=== PATIENT | female | born 1975 | race Caucasian/White ===

== ENCOUNTER 2016-05-17 17:34 | Inpatient (IN) | payer MEDICAID ==
[~2016-05-17] VITALS: Ht 154.9 cm; Wt 86.9 kg
[~2016-05-17 17:34] MED LIST: PREN1TAB62 PO
--- NOTE | 2016-05-17 17:38 | NSTRPT ---
NST Information Datetime Report Generated by CPN: 05/17/2016 17:38 Datetime: 05/17/2016 14:33 NST Information EGA: 38.0 Test Number: 7 Time on Monitor: 05/17/2016 14:50 Time off Monitor: 05/17/2016 15:19 NST Duration (Min): 29 Reason for NST: Other Reason for NST Other: AMA, large fibroid Test and Monitor Explained: Monitor Explained; Test Explained; Verbalized Understanding Pulse: 68 Resp: 18 SBP: 116 DBP: 73 Test Evaluation Patient States Movement: Present Contraction Frequency: x3, pt states 5/10 FHR Baseline : 130 Variability: Moderate 6-25bpm Accelerations: 15X15 Decelerations: None FHR Category: Category I NST Results: Reactive Provider Notified: Brandan Comments: To u/s LARRY-16.9 cm, breech, 1520-Report called to Dr Gipson, order received to admit pt to L_D for Prim c/s. POC explained to pt, states understanding and last ate at 1200. Report called to Greer RN, L_D. 1525-Pt to L_D, dionne es further questions at this time. Electronically Signed By E-Signature: with User ID: [id number] Datetime: 05/13/2016 14:28 NST Information EGA: 37.3 NST Duration (Min): 40 Datetime: 05/10/2016 14:22 NST Information EGA: 37.0 NST Duration (Min): 21 Datetime: 05/06/2016 14:15 NST Information EGA: 36.3 NST Duration (Min): 29 Datetime: 05/03/2016 14:30 NST Information EGA: 36.0 NST Duration (Min): 20 Datetime: 04/29/2016 14:32 NST Information EGA: 35.3 NST Duration (Min): 48 Datetime: 04/26/2016 10:55 NST Information EGA: 35.0 NST Duration (Min): 20
[2016-05-17 17:47] VITALS: Ht 154.9 cm; Wt 86.9 kg
[2016-05-17 17:48] VITALS: BP 128/77; PULSE 66; RESP 18
[2016-05-17] MEDS ORDERED: OXYTOCIN 30 UNITS/LR 500 ML IV PRN (18:00)
[2016-05-17] MEDS ORDERED: MISOPROSTOL 200 MCG TAB PR PRN (18:00)
[2016-05-17] MEDS ORDERED: OXYTOCIN 30 UNITS/LR 500 ML IV SCH (18:00)
[2016-05-17] MEDS ORDERED: CARBOPROST 250 MCG INJ IM PRN (18:00)
[2016-05-17] MEDS ORDERED: METHYLERGONOVINE 0.2 MG INJ IM PRN (18:00)
[2016-05-17] MEDS ORDERED: CEFAZOLIN 2 GM/50 ML (PMX) 50 ML IV SCH (18:00)
[2016-05-17 18:21] LABS: BASOPHILS % 0.4 % (0.0-2.0); EOSINOPHILS % 0.5 % (0.0-7.0); HEMATOCRIT 32.6 % (37.0-47.0); LYMPHOCYTES # 1.3 10^3/ul (0.8-2.9); LYMPHOCYTES % 22.3 % (15.0-51.0); MEAN CORPUSCULAR HGB CONC 33.6 g/dl (32.0-37.0); MEAN CORPUSCULAR VOLUME 86.3 fl (82.0-101.0); MEAN PLATELET VOLUME 8.7 fl (7.4-10.4); MONOCYTE # 0.3 10^3/ul (0.3-0.9); NEUTROPHIL # 4.3 10^3/ul (1.6-7.5); NEUTROPHILS % 71.8 % (39.0-77.0); PLATELET COUNT 243 10^3/UL (140-440); RED BLOOD COUNT 3.78 10^6/ul (4.20-5.40); RED CELL DISTRIBUTION WIDTH 16.4 % (11.5-14.5)
[2016-05-17] MEDS: LACTATED RINGER'S 1,000 ML IV SCH ×2 (18:21→19:33)
[2016-05-17 18:24] LABS: INR 0.86; PROTIME 11.7 Sec (12.2-14.2); PT RATIO 0.9
[2016-05-17 18:25] LABS: PARTIAL THROMBOPLASTIN TIME 27.5 Sec (25.0-35.0)
[2016-05-17 18:27] LABS: CONDITION 1; LH ANALYZER COMMENTS 1
[2016-05-17] MEDS ORDERED: TERBUTALINE 1 MG/ML INJ SC ONE (22:00)
[2016-05-17] MEDS ORDERED: LACTATED RINGER'S 1,000 ML IV ONE ×2 (23:22→23:25)
[2016-05-17] MEDS ORDERED: ONDANSETRON 4 MG INJ IV PRN ×2 (23:30)
[2016-05-17] MEDS ORDERED: ZOLPIDEM 5 MG TAB PO PRN (23:30)
[2016-05-17] MEDS ORDERED: hydrALAzine 20 MG INJ IV PRN (23:30)
[2016-05-17] MEDS ORDERED: KETOROLAC 30 MG INJ IV ONE (23:30)
[2016-05-17] MEDS ORDERED: CITRIC ACID/NA CITRATE 30 ML CUP PO ONE (23:30)
[2016-05-17] MEDS ORDERED: DIPHENHYDRAMINE 50 MG INJ IV PRN ×2 (23:30)
[2016-05-17] MEDS ORDERED: morphine 2 MG INJ IV PRN (23:30)
[2016-05-17] MEDS ORDERED: morphine (1 MG/ML) 10ML SYRINGE IV PRN ×3 (23:30)
[2016-05-17] MEDS ORDERED: ONDANSETRON 4 MG INJ IV ONE (23:30)
[2016-05-17] MEDS ORDERED: NALOXONE (0.4 MG/ML) INJ IV PRN (23:30)
[2016-05-17] MEDS ORDERED: EPHEDrine SULFATE 50 MG/5 ML SYG IV PRN (23:30)
[2016-05-17] MEDS ORDERED: MEPERIDINE 25 MG INJ IV PRN (23:30)
[2016-05-17] MEDS ORDERED: morphine SULFATE/PF (10 MG/10 ML) INJ ONE ×2 (23:41→23:43)
[2016-05-17] MEDS ORDERED: MIDAZOLAM 1 MG/ML 2 ML INJ ONE (23:41)
[2016-05-17] MEDS ORDERED: OXYTOCIN 10 UNIT INJ ONE (23:42)
[2016-05-17] MEDS ORDERED: PHENYLephrine (100 MCG/ML) 5ML SYG ONE (23:42)
[2016-05-18] VITALS (8 sets, daily range): BP systolic 115–126; BP diastolic 61–75; PULSE 64–102; RESP 16–20
--- NOTE | 2016-05-18 00:56 | HP ---
Date/Time of Note Date/Time of Note DATE: 05/18/16 TIME: 00:51 OB - History Hx of Present Free Text/Dictation admitted at 38weeks with breech presentation and persistent uterine contractions Last Menstrual Period: September 06, 2015 Estimated Due Date: May 31, 2016 : 8 Para: 5 Spontaneous : 2 Care: Good Care Ultrasounds: Abnormal US findings (1 umbilical artery ) Obstetrical Complications: Other (low PANTERA-A ) Past Family/Social History * Past Medical, Surgical, Family and Obstetric Histories reviewed from chart. Blood Type: O+ Rubella: immune RPR/VDRL: Negative GBS Status: Negative HBsAG: Negative OB Admission Exam Vital Signs Vital Signs Vital Signs Date Time Temp Pulse Resp B/P Pulse Ox O2 Delivery O2 Flow Rate FiO2 05/17/16 17:48 97.9 66 18 128/77 Room Air Physical Exam HEENT: WNL Heart: Rhythm Normal Lungs: Clear, Equal Abdomen: WNL Extremities: Normal Reflexes: Normal Cervical Dilatation: Fingertip Effacement: 0% Station: -3 Membranes: Intact Heart Rate: 120's Accelerations: Accelerations Present Decelerations: No Decelerations Varibility: Marked Contractions on Admission: 6-10 Minutes Apart Date/Time Contractions Began: 05/16/2016 Frequency of Contractions: q4-8 min Duration: > 60 seconds Intensity: Moderate Last 72 hours Lab Results CBC & BMP 05/17/16 17:55 OB Assessment/Plan Other Assessment: breech presentation at term in labor desires sterilization Other plan: C/S + BTL RAGHAV JOHNSON MD May 18, 2016 00:56
--- NOTE | 2016-05-18 01:03 | OPR ---
Operative Report Planned Procedure Procedure date May 18, 2016 Procedure(s) primary C/S + BTL Performed by: RAGHAV JOHNSON MD Assisting provider: DIANA VELASQUEZ Anesthesiologist: FELECIA WOLFF M.D. Pre-procedure diagnosis term gestation breech presentation labor pains desires sterilization leiomyomata of the uterus Anesthesia Type: spinal Procedure Description Under satisfactory anaesthesia a Pfannenstiel incision was made two fingerbreadth above and parallel to the symphysis of pubis. Incision was extended laterally to the border of the Recti muscles on either sides. Incision was carried down with sharp and blunt dissection until fascia was reached. Anterior Recti muscle fascia was incised in mid portion and incision extended laterally to the border of skin incision. Fascia was mobilized from muscle superiorly and Recti muscles were from midline using sharp and blunt dissection. Peritoneum was visualized; Avoiding bowel and bladder it was incised . Incision was extended superiorly and inferiorly. Bladder blade was placed. Posterior peritoneum covering the lower segment of the uterus and lower segment of the uterus were incised.Low transverse uterine incision was made on lower segment of the uterus. Incision extended laterally to the border of Round Lig. on either sides and baby was delivered via total breech extraction without difficulty . Amniotic fluid appeared clear. Cord blood was obtained and cord had 3 vessels. Placenta was delivered spontaneously and appeared intact and complete. Intrauterine cavity was rubbed with a laparotomy sponge. Uterine incision was closed in 2 layers using running stitches of No1 Monocryl. Hemostasis appeared secure. Ovaries and Fallopian tubes were within normal limits. Bilateral Tubal Ligation was performed by following procedure: R fallopian tube was raised in mid portion; a Domonique clamp was placed below the fimbriae extending to proximal portion of the fallopian tube. Another clamp was placed parallel to the first and after incising the fallopian tube the stump was sutured using 0 Vicryl stitch. Hemostasis was secure . Same procedure was done on fallopian tube on the opposite side. Hemostasis appeared to be secure on ligated sites of either fallopian tubes. Announcing needle, lap sponge and instrument count to be correct abdomen was closed in layers as follows: Peritoneum and Recti muscles with running stitches of 20 Vicryl. Fascia with running stitch of No 1 PDS. Subcutaneous tissue with running stitches of 20 Chromic and skin was closed using heather. Patient tolerated the procedure well and was transferred to [facility] in good condition. Post-Procedure Post-procedure diagnosis S/P C/S + BTL Findings: Live Baby 2 X large leiomyoma of the uterus located in the fundal area: L side: 18 x18 x18 cm R side: 14 X 14 x 14 cm Specimen removed: Yes Specimen description segments of R and L fallopian tubes Complications: None Pt Condition post procedure: stable Disposition: PACU Physician Certification I, the undersigned physician, hereby certify that I have discussed the procedure described in this consent form with this patient (or the patient's legal direct sales representative), including: * The risk and benefits of the procedure; * Any adverse reactions that may reasonably be expected to occur; * Any alternative efficacious methods of treatment which may be medically viable ; * The potential problems that may occur during recuperation; * Potential for blood transfusion and associated risks/benefits; and * Any research or economic interest I may have regarding this treatment. I further certify that the patient/legally responsible person was encouraged to ask question and that all questions were answered. RAGHAV JOHNSON MD May 18, 2016 01:03
--- NOTE | 2016-05-18 03:16 | DELSUM ---
Delivery Summary A-C Datetime Report Generated by CPN: 05/18/2016 03:16 DELIVERY PERSONNEL College Admissions Counselor: Canuto, Ailyn MATERNAL INFORMATION Delivery Anesthesia: Spinal Medications in Delivery: SEE ANESTHESIA FLOWSHEET Estimated Blood Loss (ml): 700 Placenta Cultured: No Maternal Complications: Other Other Maternal Complications: GALLSTONES, FIBROIDS, LOW PANTERA, BIOPSY R BREAST, VARICOSE VEINS LABOR SUMMARY EDC: 05/31/2016 00:00 No. Babies in Womb: 1 Attempted: No Labor Anesthesia: None LABOR INFORMATION Reason for Induction: Not Applicable Onset of Labor: 05/17/2016 05:00 Oxytocin: N/A Group B Beta Strep: Done, Result Unknown Antibiotics # of Doses: 1 Antibiotics Time of Last Dose: 2345 Steroids Given: None Reason Steroids Not Administered: Not Applicable MEMBRANES Membranes Rupture Method: Artificial Rupture of Membranes: 05/18/2016 00:08 Length of Rupture (hr): 0.03 Amniotic Fluid Color: Clear Amniotic Fluid Amount: Moderate Amniotic Fluid Odor: None STAGES OF LABOR Stage 3 hr: 0 Stage 3 min: 1 Total Time in Labor hr: 19 Total Time in Labor min: 11 CSECTION DELIVERY Primary Indication: Breech Presentation Secondary Indication: N/A CSection Urgency: Elective CSection Incidence: Primary Labor: No Labor Elective: N/A CSection Incision: Lower Uterine Transverse Sterilization Procedure: [place] BABY A INFORMATION Infant Delivery Date/Time: 05/18/2016 00:10 Method of Delivery: Born in Route : No : N/A Forceps: N/A Vacuum Extraction: N/A Shoulder Dystocia : N/A SHOULDER DYSTOCIA BABY A Infant Delivery Date/Time: 05/18/2016 00:10 PRESENTATION/POSITION BABY A Presentation: Breech Cephalic Presentation: N/A Breech Presentation: Single Footling PLACENTA INFORMATION BABY A Placenta Delivery Time : 05/18/2016 00:11 Placenta Method of Delivery: Manual Removal Placenta Status: Delivered SCORES BABY A Heart Rate 1 min: >100 bpm Resp Effort 1 min: Good Cry Reflex Irritability 1 min: Cough/Sneeze/Pulls Away Muscle Tone 1 min: Active Motion Color 1 min: Blue/Pale Resuscitation Effort 1 min: Tactile Stimulation SCORE 1 MIN: 8 Heart Rate 5 min: >100 bpm Resp Effort 5 min: Good Cry Reflex Irritability 5 min: Cough/Sneeze/Pulls Away Muscle Tone 5 min: Active Motion Color 5 min: Body [place], Extremit Blue Resuscitation Effort 5 min: Tactile Stimulation SCORE 5 MIN: 9 INFANT INFORMATION BABY A Gestational Age at Delivery: 38.1 Gestational Status: Early Term- 37- 38.6 Weeks Outcome : Liveborn Infant Condition : Stable Infant Sex: Male IDENTIFICATION/MEDS BABY A ID Band Number: [id number] ID Band Location: Right Leg; Left Arm Sensor Applied: Yes Sensor Number: [id number] Sensor Location : Cord Clamp Vitamin K Given : Not Given Erythromycin Given: Not Given WEIGHT/LENGTH BABY A Infant Birthweight (gm): 3035 Weight (lb): 6 Infant Weight (oz): 11 Length (in): 19.50 Length (cm): 49.53 CORD INFORMATION BABY A No. Cord Vessels: 3 Nuchal Cord : N/A Nuchal Cord- Other: BODY Cord Blood Taken: Yes Infant Suction: Mouth; Nose; Pharynx ASSESSMENT BABY A Infant Complications: None Physical Findings at Delivery: Within Normal Limits Respirations: Appears Normal Dramatic Teacher/ALS Called : No Care By: CAMILING Transferred To: Remains with Mother
[2016-05-18] MEDS: LACTATED RINGER'S 1,000 ML IV SCH ×3 (04:17→20:17)
[2016-05-18] MEDS ORDERED: NA PHOSPHATE/BIPHOS 133 ML ENEMA PR PRN ×2 (04:30→05:00)
[2016-05-18] MEDS ORDERED: MISOPROSTOL 200 MCG TAB PR PRN (04:30)
[2016-05-18] MEDS ORDERED: CARBOPROST 250 MCG INJ IM PRN (04:30)
[2016-05-18] MEDS ORDERED: METHYLERGONOVINE 0.2 MG INJ IM PRN (04:30)
[2016-05-18] MEDS ORDERED: LANOLIN 7 GM TUBE TOP PRN (04:30)
[2016-05-18] MEDS ORDERED: OXYTOCIN 30 UNITS/LR 500 ML IV PRN (04:30)
[2016-05-18] MEDS: CLINDAMYCIN 300 MG CAP PO SCH ×3 (05:42→17:41)
[2016-05-18] MEDS: CEFAZOLIN 2 GM/50 ML (PMX) 50 ML IV SCH ×4 (05:42→20:39)
[2016-05-18] MEDS: IBUPROFEN 800 MG TAB PO SCH ×3 (05:52→21:44)
[2016-05-18] MEDS ORDERED: DIPHENHYDRAMINE 50 MG INJ IV PRN (06:00)
[2016-05-18] MEDS: SENNA/DOCUSATE NA (8.6MG/50MG) TAB PO SCH ×2 (08:39→20:30)
[2016-05-18 11:12] LABS: BASOPHILS % 0.4 % (0.0-2.0); EOSINOPHILS % 0.4 % (0.0-7.0); HEMATOCRIT 26.6 % (37.0-47.0); HEMOGLOBIN 8.9 g/dl (12.0-16.0); LYMPHOCYTES % 15.6 % (15.0-51.0); MEAN CORPUSCULAR HEMOGLOBIN 28.8 pg (29.0-33.0); MEAN CORPUSCULAR HGB CONC 33.5 g/dl (32.0-37.0); MEAN CORPUSCULAR VOLUME 85.9 fl (82.0-101.0); MEAN PLATELET VOLUME 8.3 fl (7.4-10.4); MONOCYTE # 0.3 10^3/ul (0.3-0.9); MONOCYTES % 4.3 % (0.0-11.0); NEUTROPHIL # 5.1 10^3/ul (1.6-7.5); NEUTROPHILS % 79.3 % (39.0-77.0); PLATELET COUNT 170 10^3/UL (140-440); RED CELL DISTRIBUTION WIDTH 16.2 % (11.5-14.5); UNCORRECTED WBC 6.4 10^3/ul (4.8-10.8); WHITE BLOOD COUNT 6.4 10^3/ul (4.8-10.8)
[2016-05-18 11:16] LABS: CONDITION 1; LH ANALYZER COMMENTS 1
[2016-05-18] MEDS ORDERED: BISACODYL 10 MG SUPP PR ONE (13:30)
[2016-05-18] MEDS: morphine 2 MG INJ IV PRN ×2 (14:14→20:31)
[2016-05-19] MEDS: CLINDAMYCIN 300 MG CAP PO SCH ×5 (00:20→23:39)
[2016-05-19] MEDS: OXYCODONE/ACETAMINOPHEN (5/325) TAB PO PRN (00:20)
[2016-05-19 04:00] VITALS: BP 110/66; PULSE 84; RESP 20
[2016-05-19] MEDS: LACTATED RINGER'S 1,000 ML IV SCH ×2 (04:17→20:17)
[2016-05-19] MEDS: IBUPROFEN 800 MG TAB PO SCH ×3 (06:40→22:24)
[2016-05-19 07:30] VITALS: BP 115/67; PULSE 83; RESP 20
[2016-05-19] MEDS: ACETAMINOPHEN/CODEINE #3 TAB PO PRN ×2 (08:06→16:19)
[2016-05-19] MEDS: SENNA/DOCUSATE NA (8.6MG/50MG) TAB PO SCH ×2 (08:07→21:06)
[2016-05-19 08:31] LABS: BASOPHILS % 0.3 % (0.0-2.0); EOSINOPHILS % 0.5 % (0.0-7.0); HEMATOCRIT 26.7 % (37.0-47.0); HEMOGLOBIN 9.2 g/dl (12.0-16.0); LYMPHOCYTES # 1.2 10^3/ul (0.8-2.9); LYMPHOCYTES % 13.8 % (15.0-51.0); MEAN CORPUSCULAR HEMOGLOBIN 29.7 pg (29.0-33.0); MEAN CORPUSCULAR HGB CONC 34.3 g/dl (32.0-37.0); MEAN CORPUSCULAR VOLUME 86.6 fl (82.0-101.0); MEAN PLATELET VOLUME 8.8 fl (7.4-10.4); MONOCYTE # 0.4 10^3/ul (0.3-0.9); MONOCYTES % 4.4 % (0.0-11.0); NEUTROPHIL # 6.9 10^3/ul (1.6-7.5); PLATELET COUNT 187 10^3/UL (140-440); RED BLOOD COUNT 3.09 10^6/ul (4.20-5.40); RED CELL DISTRIBUTION WIDTH 16.5 % (11.5-14.5); UNCORRECTED WBC 8.6 10^3/ul (4.8-10.8); WHITE BLOOD COUNT 8.6 10^3/ul (4.8-10.8)
[2016-05-19 08:38] LABS: CONDITION 1; LH ANALYZER COMMENTS 1
[2016-05-19 11:51] VITALS: BP 94/53; PULSE 75; RESP 20
--- NOTE | 2016-05-19 14:23 | PN ---
Date/Time of Note Date/Time of Note DATE: 05/19/16 TIME: 14:17 Assessment/Plan VTE Prophylaxis VTE Prophylaxis Intervention: ambulation Lines/Catheters IV Catheter Type (from Nrs): Saline Lock Assessment/Plan Assessment/Plan POD # 1 S/P C/S + BTL will advance diet and ambulate Subjective 24 Hr Interval Summary passing flatus No BM Exam/Review of Systems Vital Signs Vitals Vital Signs Date Time Temp Pulse Resp B/P Pulse Ox O2 Delivery O2 Flow Rate FiO2 05/19/16 11:51 98.3 75 20 94/53 Room Air Intake and Output 05/18/16 05/18/16 05/19/16 15:00 23:00 07:00 Intake Total 1640 ml 1240 ml Output Total 200 ml 1600 ml 4200 ml Balance 1440 ml -360 ml -4200 ml Exam Free Text/Dictation VSS P/E normal abdomen: soft BS + incision : covered Results Result Diagram: 05/19/16 0655 RAGHAV JOHNSON MD May 19, 2016 14:23
[2016-05-19 17:55] VITALS: BP 116/67; PULSE 84; RESP 18
[2016-05-19 19:20] VITALS: BP 118/73; PULSE 74; RESP 18
[2016-05-20 04:00] VITALS: BP 101/53; PULSE 77; RESP 18
[2016-05-20] MEDS: LACTATED RINGER'S 1,000 ML IV SCH ×2 (04:17→20:17)
[2016-05-20] MEDS: IBUPROFEN 800 MG TAB PO SCH ×3 (06:22→21:14)
[2016-05-20] MEDS: CLINDAMYCIN 300 MG CAP PO SCH ×3 (06:23→17:05)
[2016-05-20 07:57] VITALS: BP 99/57; PULSE 76; RESP 20
[2016-05-20] MEDS: SENNA/DOCUSATE NA (8.6MG/50MG) TAB PO SCH ×2 (09:28→21:14)
[2016-05-20] MEDS: ACETAMINOPHEN/CODEINE #3 TAB PO PRN ×2 (09:28→17:05)
[2016-05-20 13:09] VITALS: BP 108/55; PULSE 82; RESP 19
[2016-05-20 15:55] VITALS: BP 104/66; PULSE 70; RESP 20
--- NOTE | 2016-05-20 18:25 | DS ---
Date/Time of Note Date/Time of Note home next day DATE: 05/20/16 TIME: 18:24 Obstetrical Discharge Record Final Diagnosis Final Diagnosis: Term delivered Other Final Diagnosis S/P C/S + BTL Vaginal Delivery Obstetrical Delivery: Bilateral Tubal Ligation Section Section: Repeat Condition on Discharge Physical Assessment Last Vitals: see nurses notes Voiding: Yes Bowel Movement: Yes Breast: Soft, non-tender, Filling Fundus: Firm Abdomen and Incision: soft BS + incision: healing well Calf Tenderness: No Patient Condition: Good RAGHAV JOHNSON MD May 20, 2016 18:25
--- NOTE | 2016-05-20 18:28 | DS ---
Date/Time of Note Date/Time of Note home next day DATE: 05/20/16 TIME: 18:25 Discharge Summary Admission/Discharge Info Admit Date/Time May 17, 2016 at 17:34 Discharge Date/Time 05/20/2016 Final Diagnosis S/P C/S + BTL leiomyomata of the uterus Patient Condition: Good Procedures C/S and BTL Hx of Present Illness 41 y/o female had C/S + BTL Hospital Course uncomplicated Home Meds Reported Medications Vit-Iron Fumarate-FA ( Vitamin Tablet) 1 Each Tablet, 1 TAB PO DAILY, TAB 03/08/16 Follow-up Plan 3 days in clinic for staple removal RAGHAV JOHNSON MD May 20, 2016 18:28
--- NOTE | 2016-05-20 18:29 | PD.PPDC ---
TELEHEALTH NURSE EDUCATOR Discharge Instruction Provider Information Physician Information 41 y/o female had repeat C/S + BTL Diagnosis Final Diagnosis: S/P C/S + BTL Condition Patient Condition: Good Diet Diet: Resume Regular Diet Activity/Restrictions Activity: August Shower Restrictions: No Exercising Nothing in the Vagina Return to Work or School: Jul 19, 2016 Wound/Drain Care Instructions Wound/Drain Care Instructions: Keep clean and dry Follow-up Follow-up with Physician: 3, Day/Days (in clinic for staple removal ) Return to clinic for SENIOR PRINCIPAL PROCESS ENGINEER Instructions: Fever greater than 101 Chills OB Instructions: Breast Tenderness Depression Surgical Instructions: Incisional Drainage Incisional Redness RAGHAV JOHNSON MD May 20, 2016 18:29
[2016-05-20] MEDS ORDERED: IBUP800T25 PO (18:30)
[2016-05-20] MEDS ORDERED: Oxycodone/Acetamin (5/325) PO (18:30)
[2016-05-20 20:00] VITALS: BP 126/87; PULSE 85; RESP 20
[2016-05-21] MEDS: CLINDAMYCIN 300 MG CAP PO SCH ×3 (01:08→11:16)
[2016-05-21 04:01] VITALS: BP 101/61; PULSE 80; RESP 20
[2016-05-21] MEDS: IBUPROFEN 800 MG TAB PO SCH (05:51)
[2016-05-21 08:00] VITALS: BP 117/61; PULSE 74; RESP 18
[2016-05-21] MEDS ORDERED: MEASLES,MUMPS,RUBELLA VACCINE INJ SC* ONE (09:00)
[2016-05-21] MEDS ORDERED: DIPHTH/TET/ACEL PERTUSS (ADULT) 0.5 ML VIAL IM* ONE (09:00)
[2016-05-21] MEDS: SENNA/DOCUSATE NA (8.6MG/50MG) TAB PO SCH (10:23)
[2016-05-21] MEDS: OXYCODONE/ACETAMINOPHEN (5/325) TAB PO PRN (11:17)
== END 2016-05-21 15:04 | disposition home or self-care (01) | DRG 766 ==
LOC: L-D 17:34 → PP1 05-18 03:28 → EDSTATUS 05-31 15:27
PROVIDERS: ADMIT Obstetrics & Gynecology; ATTEND Obstetrics & Gynecology
PROC: 10D00Z1 Extraction of Products of Conception, Low, Open Approach (ICD-10-PCS; principal; 2016-05-18)
PROC: 0UB70ZZ Excision of Bilateral Fallopian Tubes, Open Approach (ICD-10-PCS; 2016-05-18)
DX: O32.8XX0 Maternal care for other malpresentation of fetus, not applicable or unspecified (principal); D25.9 Leiomyoma of uterus, unspecified; O34.13 Maternal care for benign tumor of corpus uteri, third trimester; Z3A.38 38 weeks gestation of pregnancy; Z37.0 Single live birth; O09.523 Supervision of elderly multigravida, third trimester
CPT/HCPCS: 85025; 85610; 85730; 86592; 86850; 86900; 86901; 87340; 88302; 90715; 99464; J0690; J1200; J1885; J2250; J2270; J2274; J2370; J2590; J3105; J7120

== ENCOUNTER 2017-05-16 12:57 | Inpatient (IN) | END 2017-05-18 15:35 | disposition home or self-care (01) | DRG 694 ==

== ENCOUNTER 2019-02-05 08:42 | Emergency (ER) | payer MEDICAID ==
[~2019-02-05] VITALS: Ht 157.5 cm; Wt 90.8 kg
[~2019-02-05 08:42] MED LIST changes: +ACET325T33 PO; +AMOX500C2 PO; +KETO10TA PO; +Oxycodone/Acetamin (5/325) PO; -PREN1TAB62 PO
[2019-02-05 08:49] VITALS: BP 131/59; PULSE 92; RESP 17; Ht 157.5 cm; Wt 90.8 kg
[2019-02-05] MEDS ORDERED: ACETAMINOPHEN 500 MG TAB PO STA (09:24)
== END 2019-02-05 09:59 | disposition home or self-care (01) ==
LOC: FTE 08:42
DX: J02.9 Acute pharyngitis, unspecified (principal)
CPT/HCPCS: 99283